=== PATIENT | male | born 1950 | race Caucasian/White ===

== ENCOUNTER 2017-11-19 21:51 | Emergency (ER) | payer OTHER ==
[~2017-11-19] VITALS: Ht 180.3 cm; Wt 79.4 kg
[2017-11-19 22:09] LABS: Hematocrit 42.7 % (37.0-53.0); Hemoglobin 14.9 g/dL (13.5-17.5); Mean Corpuscular HGB 32.3 pg (26.0-34.0); Mean Corpuscular HGB Conc 34.9 g/dL (31.5-36.5); Mean Corpuscular Volume 93 fL (80-100); Platelet Count 77 K/mm3 (150-400); RDW Coefficient Variation 13.1 % (11.7-14.2); RDW Standard Deviation 44.2 fL (35.1-46.3); Red Blood Cell Count 4.61 M/mm3 (4.30-5.90); White Blood Cell Count 5.62 K/mm3 (4.00-11.30)
[2017-11-19] MEDS ORDERED: AMLO10 PO (22:16)
[2017-11-19] MEDS ORDERED: ARTIFICIAL SALIVA (22:17)
[2017-11-19] MEDS ORDERED: VITAMIN D250000 UNIT PO (22:19)
[2017-11-19] MEDS ORDERED: FLUOCINOLONE AC TOP (22:21)
[2017-11-19] MEDS ORDERED: LEVSOD75 PO (22:22)
[2017-11-19] MEDS ORDERED: Flonase 0.05% N16 GM (22:22)
[2017-11-19] MEDS ORDERED: Omeprazole20 M1 PO (22:24)
[2017-11-19] MEDS ORDERED: ENSURE PO (22:24)
[2017-11-19 22:25] LABS: Alanine Aminotransfer (ALT/SGP 50 U/L (12-78); Albumin, Blood 3.8 g/dL (3.4-5.0); Albumin/Globulin Ratio 0.8 (0.8-1.8); Alk Phos 90 U/L (50-136); Anion Gap 14 mmol/L (6-16); Aspartate Aminotrans (AST/SGOT 42 U/L (12-37); Bilirubin, Total 0.3 mg/dL (0.1-1.0); Blood Urea Nitrogen 18 mg/dL (8-24); Bun/Creatinine Ratio 27.5 (12.0-20.0); CO2, Blood 18 mmol/L (21-32); Chloride, Blood 109 mmol/L (98-108); Creatinine, Blood 0.66 mg/dL (0.60-1.20); Globulin, Blood 4.5 g/dL (2.2-4.0); Glomerular Filtration Rate >60 (60-); Glucose, Blood 130 mg/dL (70-99); Potassium, Blood 3.7 mmol/L (3.5-5.5); Sodium, Blood 141 mmol/L (136-145); Total Protein, Blood 8.3 g/dL (6.4-8.2)
[2017-11-19] MEDS ORDERED: RISP1 PO (22:25)
[2017-11-19] MEDS ORDERED: PHENY100ER PO (22:25)
[2017-11-19 22:42] LABS: Dilantin (Phenytoin), Total 2.6 ug/mL (10.0-20.0)
[2017-11-19 22:47] LABS: BAND PERCENT MAN 7 % (0-8); BASOPHILS PERCENT MAN 0 % (0-2); EOSINOPHILS ABSOLUTE MAN 0.11 K/mm3 (0.00-0.68); EOSINOPHILS PERCENT MAN 2 % (0-6); LYMPHOCYTES ABSOLUTE MAN 1.29 K/mm3 (0.84-5.20); LYMPHOCYTES PERCENT MAN 23 % (21-46); MONOCYTES ABSOLUTE MAN 0.28 K/mm3 (0.16-1.47); MONOCYTES PERCENT MAN 5 % (4-13); MYELOCYTE ABSOLUTE MAN 0.05 K/mm3 (0.00-0.00); MYELOCYTE PERCENT MAN 1 % (0-0); NEUTROPHILS ABSOLUTE MAN 3.87 K/mm3 (1.96-9.15); SEG NEUTROPHILS PERCENT MAN 62 % (41-73); TOTAL CELLS COUNTED 100
== END 2017-11-20 00:18 | disposition home or self-care (01) ==
LOC: ER 21:51
PROVIDERS: Emergency Medicine
DX: G40.909 Epilepsy, unspecified, not intractable, without status epilepticus (principal); Z79.899 Other long term (current) drug therapy; Z87.891 Personal history of nicotine dependence
CPT/HCPCS: 36415; 80053; 80185; 82947; 85025; 96365; 99283; J1165; J7030

== ENCOUNTER 2020-05-29 14:25 | Day surgery (SDC) | payer OTHER ==
[~2020-05-29] VITALS: Ht 180.3 cm; Wt 165.2 kg
[~2020-05-29 14:25] MED LIST: AMLO10 PO; ARTIFICIAL SALIVA; ENSURE PO; FLUOCINOLONE AC TOP; Flonase 0.05% N16 GM; LEVSOD75 PO; Omeprazole20 M1 PO; PHENYTOIN SODI100 MG PO; RISP1 PO; VITAMIN D250000 UNIT PO
--- NOTE | 2020-05-29 17:54 | NUR ---
05/29/20 1754 Ann DunneLinda ONE FAILED ATTEMPT IN RIGHT FOREARM. PT STATES HISTORY OF IV DRUG USE, STOPPED USING IV WHEN HE WAS NO LONGER ABLE TO FIND WORKING VEIN. PT AND SIGNIFICANT OTHER INSTRUCT THIS RN TO ATTEMPT IN FOOT, THAT WAS THE LAST SUCCESSFUL PLACEMENT. FIRST ATTEMPT IN RIGHT FOOT SUCCESSFUL.
--- NOTE | 2020-05-29 17:58 | NUR ---
05/29/20 0910 Ann Dunne PT AND SIGNIFICANT OTHER UPDATED ON DELAY OF XRAY READING. BOTH VERY CALM, TALKING AND LAUGHING. PT RESTING COMFORTABLY IN BED, CALL LIGHT WITHIN REACH. DENIES NEEDS AT THIS TIME.
[2020-06-20] MEDS ORDERED: OXYC5 PO (09:35)
[2020-06-20] MEDS ORDERED: LEVE500 PO ×2 (13:10)
== END 2020-05-29 18:10 | disposition home or self-care (01) ==
LOC: ORSCSDS 14:25
PROVIDERS: Surgery
PROC: B5161ZA Fluoroscopy of Right Subclavian Vein using Low Osmolar Contrast, Guidance (ICD-10-PCS; principal; 2020-05-29 15:45)
PROC: 05H533Z Insertion of Infusion Device into Right Subclavian Vein, Percutaneous Approach (ICD-10-PCS; principal; 2020-05-29 15:45)
DX: C22.0 Liver cell carcinoma (principal); I10 Essential (primary) hypertension; E03.9 Hypothyroidism, unspecified; G40.89 Other seizures; Z79.899 Other long term (current) drug therapy
CPT/HCPCS: 77001; C1788; J0690; J1100; J1642; J2250; J2405; J2704; J7120